=== PATIENT | female | born 1995 | race Caucasian/White ===

== ENCOUNTER 2017-05-07 22:25 | Emergency (ER) | payer MEDICAID ==
[~2017-05-07] VITALS: Ht 160 cm; Wt 44.5 kg
[2017-05-07 23:05] VITALS: BP 115/72; Ht 160 cm; Wt 44.5 kg
== END 2017-05-08 02:13 | disposition left against medical advice (07) ==
LOC: ED 22:25
DX: Z53.21 Procedure and treatment not carried out due to patient leaving prior to being seen by health care provider (principal)

== ENCOUNTER 2019-02-23 12:55 | Emergency (ER) | payer MEDICAID ==
[~2019-02-23] VITALS: Ht 162.6 cm; Wt 44.9 kg
[2019-02-23 13:06] VITALS: Ht 162.6 cm; Wt 44.9 kg
[2019-02-23 14:00] LABS: CALCIUM 9.2 mg/dL (8.5-10.1); CARBON DIOXIDE 25.2 mmol/L (21-32); CHLORIDE SERUM 105 mmol/L (98-107); CREATININE SERUM 0.7 mg/dL (0.6-1.0); GFR1 > 60 mL/min; GLUCOSE SERUM 136 mg/dL (74-106); POTASSIUM SERUM 3.7 mmol/L (3.5-5.1); SODIUM SERUM 143 mmol/L (136-145)
[2019-02-23 14:04] LABS: ALBUMIN 4.3 g/dL (3.4-5.0); ALKALINE PHOSPHATASE 100 U/L (46-116); ALT/SGPT 14 U/L (14-59); AST/SGOT 15 U/L (15-37); BILIRUBIN TOTAL 0.8 mg/dL (0.20-1.00); LIPASE 74 IU/L (73-393); TOTAL PROTEIN, SERUM 8.4 g/dL (6.4-8.2)
[2019-02-23 14:06] LABS: BASOPHIL % 0.5 % (0-2); PLATELET COUNT 314 x10^3mcL (130-400)
[2019-02-23 14:25] VITALS: BP 118/72
== END 2019-02-23 15:37 | disposition home or self-care (01) ==
LOC: ED 12:55
PROVIDERS: Emergency Medicine
DX: B34.9 Viral infection, unspecified (principal)
CPT/HCPCS: J2060; J2405; J7030; Q0092

== ENCOUNTER 2020-02-09 19:50 | Emergency (ER) | payer MEDICAID ==
[~2020-02-09] VITALS: Ht 162.6 cm; Wt 50.5 kg
[2020-02-09 20:02] VITALS: Ht 162.6 cm; Wt 50.5 kg
[2020-02-09 21:12] LABS: microscopic required? YES; urine erythrocyte TRACE (NEGATIVE)
[2020-02-09 22:12] VITALS: BP 118/76
== END 2020-02-09 22:13 | disposition home or self-care (01) ==
LOC: ED 19:50
PROVIDERS: Emergency Medicine
DX: N39.0 Urinary tract infection, site not specified (principal); Z11.3 Encounter for screening for infections with a predominantly sexual mode of transmission
CPT/HCPCS: J0696